=== PATIENT | male | born 2000 | race Two or more races ===

== ENCOUNTER 2023-01-07 07:06 | Emergency (ER) | payer OTHER ==
[~2023-01-07] VITALS: Ht 177.8 cm; Wt 77.1 kg
[2023-01-07 08:22] LABS: HEMATOCRIT 45.6 % (39.0-48.0); HEMOGLOBIN 15.4 g/dL (13-16.00); MEAN CELL VOLUME 86.6 fL (80.0-100.00); MEAN CORPUSCULAR HEMOGLOBIN 29.3 pg (27.00-32.0); MEAN CORPUSCULAR HGB CONC 33.8 g/dl (32.0-36.0); PLATELET COUNT 288 K/uL (150-450); RED BLOOD COUNT 5.27 M/uL (4.00-6.00); RED CELL DISTRIBUTION WIDTH 12.6 % (11.5-14.5)
[2023-01-07 08:59] LABS: ALBUMIN 4.4 gm/dL (3.4-5.0); BILIRUBIN TOTAL 0.6 mg/dL (0.3-1.2); CALCIUM 9.4 mg/dL (8.5-10.1); CREATININE SERUM 1.26 mg/dL (0.70-1.30); GFR 71.56; GLOBULINA 3.8 G/DL (2.4-3.5); POTASSIUM 4.04 mEq/L (3.5-5.1); TOTAL PROTEIN 8.2 gm/dL (6.4-8.2)
== END 2023-01-07 16:04 | disposition home or self-care (01) ==
LOC: ER 07:07
DX: K52.89 Other specified noninfective gastroenteritis and colitis (principal)
CPT/HCPCS: 36415; 74176; 96365; 96366; 96372; 99284; J2405; J2765; J3490

== ENCOUNTER → 2023-01-27 13:18 | Outpatient (CLI) | payer OTHER ==
[2023-01-27 14:01] LABS: HEMATOCRIT 42.1 % (39.0-48.0); HEMOGLOBIN 14.6 g/dL (13-16.00); MEAN CELL VOLUME 85.1 fL (80.0-100.00); MEAN CORPUSCULAR HEMOGLOBIN 29.5 pg (27.00-32.0); MEAN CORPUSCULAR HGB CONC 34.7 g/dl (32.0-36.0); PLATELET COUNT 287 K/uL (150-450); RED BLOOD COUNT 4.95 M/uL (4.00-6.00); RED CELL DISTRIBUTION WIDTH 13.1 % (11.5-14.5)
[2023-01-27 14:05] LABS: ERYTHROCYTE SEDIMENTATION RATE 4 mm/hr
[2023-01-27 15:16] LABS: URIC ACID 7.6 mg/dL (3.5-8.5)
[2023-01-27 15:26] LABS: C-REACTIVE PROTEIN 0.58 MG/DL (0.00-0.29)
== END | disposition home or self-care (01) ==
LOC: LAB 13:18
PROVIDERS: ATTEND Emergency Medicine Pediatric Emergency Medicine
DX: M10.00 Idiopathic gout, unspecified site (principal); M13.80 Other specified arthritis, unspecified site

== ENCOUNTER 2024-06-11 06:42 | Outpatient (CLI) | payer OTHER ==
[2024-06-11 09:24] LABS: PH,URINE 5.5 (5.0-8.0); URINE APPEARANCE Clear; URINE BILIRRUBIN Negative (NEGATIVE); URINE BLOOD Negative; URINE COLOR Yellow; URINE GLUCOSE Negative (NEGATIVE); URINE KETONE Trace (NEGATIVE); URINE LEUKOCYTE Negative; URINE NITRATE Negative; URINE PROTEIN Negative (NEGATIVE); URINE UROBILINOGEN 0.2 E.U./dl
[2024-06-11 09:25] LABS: URINE BACTERIA 6.1 uL (0.0-1933); URINE WBC 4.4 uL (0.0-23.2)
[2024-06-11 09:33] LABS: HEMATOCRIT 41.6 % (39.0-48.0); HEMOGLOBIN 13.7 g/dL (13-16.00); MEAN CELL VOLUME 88.2 fL (80.0-100.00); MEAN CORPUSCULAR HGB CONC 32.9 g/dl (32.0-36.0); PLATELET COUNT 187 K/uL (150-450); RED BLOOD COUNT 4.72 M/uL (4.00-6.00); RED CELL DISTRIBUTION WIDTH 13.2 % (11.5-14.5)
[2024-06-11 09:37] LABS: URINE CAST 0.44 uL (0.0-1.40); URINE EPITHELIAL CELLS 1.2 uL (0.0-38.8); URINE RBC 1.9 uL (0.0-20.8)
[2024-06-11 10:09] LABS: URIC ACID 4.5 mg/dL (3.5-8.5)
[2024-06-11 10:11] LABS: ALBUMIN 4.3 gm/dL (3.4-5.0); BILIRUBIN TOTAL 0.61 mg/dL (0.3-1.2); CALCIUM 9.1 mg/dL (8.5-10.1); CREATININE SERUM 0.98 mg/dL (0.70-1.30); GFR 93.97; GLOBULINA 2.9 G/DL (2.4-3.5); POTASSIUM 3.65 mEq/L (3.5-5.1); T4 FREE 0.96 NG/ML (0.76-1.46); TOTAL PROTEIN 7.2 gm/dL (6.4-8.2); TSH 1.41 uIU/mL (0.358-3.74)
[2024-06-11 10:15] LABS: T3 TOTAL 1.51 ng/ml (0.846-2.02); VITAMIN D3 25 HYDROXY 21.19 ng/ml (30-120)
== END 2024-06-11 08:16 | disposition home or self-care (01) ==
LOC: LAB 06:42
PROVIDERS: ATTEND Emergency Medicine
DX: R42 Dizziness and giddiness (principal); R53.81 Other malaise; M54.50 Low back pain, unspecified